=== PATIENT | male | born 1950 | race Hispanic/Latino ===

== ENCOUNTER 2018-10-30 09:54 | Outpatient (CLI) | payer MEDICARE, MEDICAID | END 2018-10-30 09:55 | disposition home or self-care (01) | LOC: RAD 09:54 ==

== ENCOUNTER 2019-01-23 13:25 | Outpatient (CLI) | payer MEDICARE, MEDICAID | END 2019-01-23 13:26 | disposition home or self-care (01) | LOC: LAB 13:25 | DX: R63.4 Abnormal weight loss (principal) ==